=== PATIENT | male | born 1965 | race Caucasian/White ===

== ENCOUNTER → 2018-06-17 | Outpatient (CLI) | payer MEDICARE, MEDICAID ==
[2018-06-17 12:17] LABS: ABSOLUTE BASOPHILS # (AUTO) 0.1 10^3/uL (0.0-0.2); ABSOLUTE EOSINOPHILS # (AUTO) 0.4 10^3/uL (0.0-0.6); ABSOLUTE LYMPHOCYTES (AUTO) 0.8 10^3/uL (0.5-4.7); ABSOLUTE MONOCYTES (AUTO) 0.4 10^3/uL (0.1-1.4); ABSOLUTE NEUT (AUTO) 5.6 10^3/uL (1.7-8.2); BASOPHILS % (AUTO) 1.3 % (0-2); EOSINOPHILS % (AUTO) 5.3 % (0-6); HEMATOCRIT 29.9 % (37.9-51.0); HEMOGLOBIN 9.9 g/dL (13.5-17.0); MEAN CORPUSCULAR HEMOGLOBIN 28.7 pg (27.0-33.4); MEAN CORPUSCULAR HGB CONC 33.1 g/dL (32.0-36.0); MEAN CORPUSCULAR VOLUME 87 fl (80-97); MONOCYTES % (AUTO) 5.3 % (3-13); PLATELET COUNT 321 10^3/uL (150-450); RED BLOOD COUNT 3.44 10^6/uL (4.35-5.55); RED CELL DISTRIBUTION WIDTH 15.5 % (11.5-14.0); SEGMENTED NEUTROPHILS % (AUTO) 77.1 % (42-78); TOTAL CELLS COUNTED % (AUTO) 100 %; WHITE BLOOD COUNT 7.3 10^3/uL (4.0-10.5)
[2018-06-17 12:47] LABS: ANION GAP 18 (5-19); BLOOD UREA NITROGEN 34 mg/dL (7-20); CALCIUM 9.2 mg/dL (8.4-10.2); CARBON DIOXIDE 25 mmol/L (22-30); CHLORIDE 95 mmol/L (98-107); GLUCOSE 143 mg/dL (75-110); POTASSIUM 4.6 mmol/L (3.6-5.0); SODIUM 138.4 mmol/L (137-145)
--- NOTE | 2018-06-17 13:02 | RADIOLOGY REPORT (SQ) ---
EXAM DESCRIPTION: CHEST PA/LATERAL COMPLETED DATE/TIME: 06/17/2018 11:49 am REASON FOR STUDY: PRE-OP COMPARISON: None. EXAM PARAMETERS: NUMBER OF VIEWS: two views TECHNIQUE: Digital Frontal and Lateral radiographic views of the chest acquired. RADIATION DOSE: NA LIMITATIONS: none FINDINGS: LUNGS AND PLEURA: No opacities, masses or pneumothorax. No pleural effusion. MEDIASTINUM AND HILAR STRUCTURES: No masses or contour abnormalities. HEART AND VASCULAR STRUCTURES: Cardiomegaly. Mild prominence of the pulmonary vasculature(cephaliza tion). No evidence for failure. BONES: No acute findings. HARDWARE: None in the chest. OTHER: No other significant finding. IMPRESSION: 1. No acute pulmonary findings. 2. Cardiomegaly. No evidence for failure. TECHNICAL DOCUMENTATION: JOB ID: [id number] [employer]- All Rights Reserved Reading location - IP/workstation name: [email or web address]
--- NOTE | 2018-06-17 13:28 | EKG REPORT ---
SEVERITY:- ABNORMAL ECG - SINUS RHYTHM FIRST DEGREE AV BLOCK NONSPECIFIC INTRAVENTRICULAR CONDUCTION DELAY PROBABLE LEFT VENTRICULAR HYPERTROPHY : Confirmed by: Shine Gomes MD 17-Jun-2018 13:27:33
== END ==
LOC: OD 10:59
PROVIDERS: ATTEND Orthopaedic Surgery
DX: Z01.810 Encounter for preprocedural cardiovascular examination (principal); Z01.811 Encounter for preprocedural respiratory examination; Z01.812 Encounter for preprocedural laboratory examination; M19.019 Primary osteoarthritis, unspecified shoulder; Z95.818 Presence of other cardiac implants and grafts; Z01.89 Encounter for other specified special examinations; I12.0 Hypertensive chronic kidney disease with stage 5 chronic kidney disease or end stage renal disease; N18.6 End stage renal disease; I51.7 Cardiomegaly
CPT/HCPCS: 36415; 71046; 80048; 85025; 93005; 93010

== ENCOUNTER → 2018-12-29 | Outpatient (CLI) | payer MEDICARE, MEDICAID ==
[2018-12-29 16:07] LABS: ABSOLUTE BASOPHILS # (AUTO) 0.1 10^3/uL (0.0-0.2); ABSOLUTE EOSINOPHILS # (AUTO) 0.3 10^3/uL (0.0-0.6); ABSOLUTE LYMPHOCYTES (AUTO) 0.8 10^3/uL (0.5-4.7); ABSOLUTE MONOCYTES (AUTO) 0.4 10^3/uL (0.1-1.4); BASOPHILS % (AUTO) 1.1 % (0-2); EOSINOPHILS % (AUTO) 4.6 % (0-6); HEMATOCRIT 32.7 % (37.9-51.0); HEMOGLOBIN 11.1 g/dL (13.5-17.0); LYMPHOCYTES % (AUTO) 12.5 % (13-45); MEAN CORPUSCULAR HEMOGLOBIN 29.3 pg (27.0-33.4); MEAN CORPUSCULAR HGB CONC 33.9 g/dL (32.0-36.0); MEAN CORPUSCULAR VOLUME 87 fl (80-97); MONOCYTES % (AUTO) 6.5 % (3-13); PLATELET COUNT 261 10^3/uL (150-450); RED BLOOD COUNT 3.77 10^6/uL (4.35-5.55); RED CELL DISTRIBUTION WIDTH 15.5 % (11.5-14.0); SEGMENTED NEUTROPHILS % (AUTO) 75.3 % (42-78); TOTAL CELLS COUNTED % (AUTO) 100 %; WHITE BLOOD COUNT 6.7 10^3/uL (4.0-10.5)
--- NOTE | 2018-12-29 16:12 | RADIOLOGY REPORT (SQ) ---
EXAM DESCRIPTION: CHEST PA/LATERAL COMPLETED DATE/TIME: 12/29/2018 3:36 pm REASON FOR STUDY: PRE-OP COMPARISON: 06/17/2018. EXAM PARAMETERS: NUMBER OF VIEWS: two views TECHNIQUE: Digital Frontal and Lateral radiographic views of the chest acquired. RADIATION DOSE: NA LIMITATIONS: none FINDINGS: LUNGS AND PLEURA: No opacities, masses or pneumothorax. No pleural effusion. MEDIASTINUM AND HILAR STRUCTURES: No masses or contour abnormalities. HEART AND VASCULAR STRUCTURES: Heart normal size. No evidence for failure. BONES: No acute findings. HARDWARE: None in the chest. OTHER: No other significant finding. IMPRESSION: NO SIGNIFICANT RADIOGRAPHIC FINDING IN THE CHEST. TECHNICAL DOCUMENTATION: JOB ID: [id number] [employer]- All Rights Reserved Reading location - IP/workstation name: [email or web address]
[2018-12-29 16:36] LABS: ANION GAP 17 (5-19); BLOOD UREA NITROGEN 60 mg/dL (7-20); CALCIUM 8.2 mg/dL (8.4-10.2); CARBON DIOXIDE 31 mmol/L (22-30); CHLORIDE 91 mmol/L (98-107); GLUCOSE 103 mg/dL (75-110); POTASSIUM 4.3 mmol/L (3.6-5.0)
--- NOTE | 2018-12-30 17:58 | EKG REPORT ---
SEVERITY:- ABNORMAL ECG - SINUS RHYTHM FIRST DEGREE AV BLOCK CONSIDER ANTEROSEPTAL INFARCT BORDERLINE PROLONGED QT INTERVAL : Confirmed by: Royal Gonzalez 30-Dec-2018 17:57:45
== END ==
LOC: OD 15:05
PROVIDERS: ATTEND Orthopaedic Surgery
DX: M19.011 Primary osteoarthritis, right shoulder (principal); I10 Essential (primary) hypertension
CPT/HCPCS: 36415; 71046; 80048; 85025; 93005; 93010

== ENCOUNTER 2019-02-03 09:53 | Observation (INO) | payer MEDICARE, MEDICAID ==
[~2019-02-03 09:53] MED LIST: BUPIVACAINE INJ/PF LIPOSOME/PF 266 MG/20 ML SDV INJ PRN; CEFAZOLIN INJ 1 GM VIAL IV PRN; DEXAMETHASONE SOD PHOSPHATE INJ 4 MG/1 ML VIAL ONE; FENTANYL CITRATE INJ/PF 100 MCG/2 ML AMPUL ONE; FENTANYL CITRATE INJ/PF 250 MCG/5 ML AMPULE ONE; IBUPROFEN 800 MG in NORMAL SALINE 250 ML IV PRN; LIDOCAINE 0.5% INJ-PF (5 MG/ML) 50 ML SDV SUBCUT PRN; MIDAZOLAM 2 MG/2 ML INJ ONE; NORMAL SALINE 1000 ML (RENAL PATIENTS) IV PRN; ONDANSETRON HCL INJ/PF 4 MG/2 ML SDV ONE; OXYCODONE HCL SR 10 MG TABLET PO PRN; PROPOFOL INJ 200 MG/20 ML VIAL IV ONE; TRANEXAMIC ACID INJ/PF 1,000 MG/10 ML SDV ONE; VANCOMYCIN HCL 1,000 MG in DEXTROSE 5%-WATER 250 ML IV PRN
[2019-02-03] MEDS ORDERED: PANTOPRAZOLE SODIUM 20 MG TABLET.DR PO ONE (10:18)
[2019-02-03] MEDS ORDERED: OXYCODONE HCL SR 10 MG TABLET PO ONE (10:19)
[2019-02-03] MEDS ORDERED: CEFAZOLIN INJ 1 GM VIAL ONE (10:19)
[2019-02-03] MEDS: PANTOPRAZOLE SODIUM 20 MG TABLET.DR PO PRN ×2 (11:00→23:35)
[2019-02-03 11:24] LABS: ANION GAP 18 (5-19); BLOOD UREA NITROGEN 48 mg/dL (7-20); CALCIUM 7.8 mg/dL (8.4-10.2); CARBON DIOXIDE 32 mmol/L (22-30); CHLORIDE 94 mmol/L (98-107); GLUCOSE 104 mg/dL (75-110); POTASSIUM 3.6 mmol/L (3.6-5.0)
--- NOTE | 2019-02-03 11:36 | Operative Report ---
Operative Report DATE OF SURGERY: 02/03/19 PREOPERATIVE DIAGNOSIS: Poor peripheral veins for IV access POSTOPERATIVE DIAGNOSIS: Same OPERATION: Placement of left internal jugular vein triple-lumen catheter SURGEON: DILLAN ZENDEJAS ANESTHESIA: Local TISSUE REMOVED OR ALTERED: None COMPLICATIONS: None ESTIMATED BLOOD LOSS: 10 cc QUANTITATIVE BLOOD LOSS: 10 INTRAOPERATIVE FINDINGS: Relatively small left internal jugular vein noted on ultrasound PROCEDURE: After informed consent obtained and after timeout patient was placed in the stretcher on Trendelenburg position and the left neck prepped and draped in the usual sterile fashion. With the use of the ultrasound the left internal jugular vein was then identified and the skin over it was then anesthetized with lidocaine. The left internal jugular vein was then punctured and lidocaine came out of the needle that slightly dark and nonpulsatile. Next guidewire passed through the needle towards the area of the superior vena cava and the needle removed and the puncture site dilated. A triple-lumen catheter was then inserted through the guidewire to a distance of about 19cm. The guidewire was removed and all the 3 ports aspirated blood easily and instilled saline easily. Guide and the catheter anchored to the skin with 3-0 silk and a Biopatch placed at the insertion site and a transparent sterile dressing placed over the Biopatch and catheter. A chest x-ray was immediately obtained which showed ca theter in good position right at the superior vena cava area and no evidence of pneumothorax. Patient tolerated procedure well.
[2019-02-03] MEDS ORDERED: LIDOCAINE 0.5% INJ-PF (5 MG/ML) 50 ML SDV ONE (11:47)
--- NOTE | 2019-02-03 12:05 | RADIOLOGY REPORT (SQ) ---
EXAM DESCRIPTION: CHEST SINGLE VIEW COMPLETED DATE/TIME: 02/03/2019 11:45 am REASON FOR STUDY: PREOP COMPARISON: 12/29/2018 EXAM PARAMETERS: NUMBER OF VIEWS: One view. TECHNIQUE: Single frontal radiographic view of the chest acquired. RADIATION DOSE: NA LIMITATIONS: None. FINDINGS: LUNGS AND PLEURA: No opacities, masses or pneumothorax. No pleural effusion. MEDIASTINUM AND HILAR STRUCTURES: No masses. Contour normal. HEART AND VASCULAR STRUCTURES: Heart normal in size. Aortic atherosclerosis BONES: No acute findings. Degenerative changes at the right shoulder. HARDWARE: Left IJ central venous catheter with tip over SVC. OTHER: No other significant finding. IMPRESSION: No evidence of acute intrathoracic process. Left IJ central venous catheter tip over SVC. No pneumothorax. TECHNICAL DOCUMENTATION: JOB ID: [id number] [employer]- All Rights Reserved Reading location - IP/workstation name: [email or web address]
[2019-02-03] MEDS ORDERED: EPHEDRINE SULFATE INJ 50 MG/1 ML AMPULE ONE (12:46)
[2019-02-03] MEDS ORDERED: SUCCINYLCHOLINE CHLORIDE INJ 200 MG/10 ML VIAL ONE (13:10)
[2019-02-03] MEDS ORDERED: DIPHENHYDRAMINE HCL 50 MG/ML VIAL IV PRN (14:00)
[2019-02-03] MEDS ORDERED: FENTANYL CITRATE INJ/PF 100 MCG/2 ML AMPUL IV PRN ×3 (14:00)
[2019-02-03] MEDS ORDERED: MORPHINE SULFATE 10 MG/ML INJ IV PRN (14:00)
[2019-02-03] MEDS ORDERED: MEPERIDINE HCL/PF INJ 25 MG/1 ML DISP.SYRIN IV PRN (14:00)
[2019-02-03] MEDS ORDERED: ONDANSETRON HCL INJ/PF 4 MG/2 ML SDV IV PRN (14:00)
[2019-02-03] MEDS ORDERED: PROMETHAZINE HCL INJ 25 MG/1 ML VIAL IV PRN ×2 (14:00)
[2019-02-03] MEDS ORDERED: BUPIVACAINE HCL 0.25 % INJ/PF (2.5 MG/1 ML) 30 ML VIAL ONE (16:12)
[2019-02-03] MEDS ORDERED: BUPIVACAINE HCL 0.5 % INJ/PF 30 ML SDV ONE (16:12)
--- NOTE | 2019-02-03 16:42 | Operative Report ---
Operative Report DATE OF SURGERY: 02/03/19 PREOPERATIVE DIAGNOSIS: Right glenohumeral DJD POSTOPERATIVE DIAGNOSIS: same OPERATION: Right total shoulder arthroplasty SURGEON: ARTEMIO PALUMBO ANESTHESIA: GA COMPLICATIONS: None ESTIMATED BLOOD LOSS: 125cc PROCEDURE: Indication for above procedure: 28-year-old male with long-standing history of right glenohumeral DJD. Patient has attempted conservative measures including multiple injections without long- term resolution of his symptoms. Patient's symptoms became significantly debilitating decreasing his ability to perform ADLs. At that point decision was made to proceed with operative intervention. Risk and benefits were explained patient verbalized understanding consented for surgical procedure. Implants: Arthrex universe vaulted glenoid medium, Arthrex universe humeral stem 6 mm 50/21 humeral head Procedure In Detail: Patient was seen and evaluated in the preoperative holding area. The RIGHT upper extremity was initialized and marked. Patient received 2g of Ancef and Vancomycin IV for bacterial prophylaxis. Patient was taken back to the operative room where transferred to the operative table and placed under general anesthesia. Once they were adequately anesthetized patient placed in the beachchair position. Cervical spine was placed in neutral position all bony pr ominences were padded including nonoperative upper extremity and bilateral lower extremity. A surgical team debriefing was performed ensuring all instrumentation was available, the surgical procedure was discussed with possible concerns reviewed. The upper extremity was prepped with ChloraPrep draped in a sterile fashion. A timeout was done identifying correct patient, procedure and extremity everyone in attendance agree with this and verbalized no concerns. Deltopectoral interval was utilized. Blunt dissection was performed. Cephalic vein was identified and retracted in a lateral direction. Any small tributaries were isolated coagulated and controlled. Clavicle pectoralis fascia was then incised. Bleeders along the humeral neck was identified and coagulated. Biceps tendon was identified and rotator interval incised. Subscapularis peel was then performed exposing the glenohumeral joint. Rotator cuff was explored to ensure no evidence of disruption and remained intact. Extra medullary guide was then utilized and 35 degree neck angle cut and humeral head removed. Humeral head measured approximately 50 mm on the back table. The capsule was then subscapularis was then tagged and capsule isolated and excised to define the glenoid. Once glenoid was at least exposed the VIP guide was placed. And pin was placed along the central portion of the glenoid. Any peripheral osteophytes were removed. After peripheral osteophytes were removed the glenoid sizer was placed and decision was made to proceed with medium glenoid as opposed to large glenoid. The glenoid was reamed down to cancellus bone. The voltage glenoid was prepared with appropriate drill holes. An central drill hole drilled. Medium glenoid on the back table was then prepared with bone graft along the central peg and cement prepared. The cement was pressurized within the holes along the glenoid and glenoid impacted into position. Under direct visualization placement of the glenoid was confirmed without evidence of overhang and proper advancement. Wound was copiously irrigated with normal saline and decision then went to preparation of the humeral stem. Intramedullary guide was placed within the humerus reaming with hand up to a 6 mm reamer. Humerus was then broached with a 30 degree retroversion angle. Began broaching a 5 mm up to a 6 mm stem at which point, adequate fixation. Humerus was trialed and decision was made that 50/21 humeral head was adequate stability with the 60-14-27-year-old with posterior translation and 50% bounce back, 40 degrees of external rotation and 6 degrees of internal rotation at 90 degrees. No evidence of instability. 2 drill holes were placed within the biceps groove. 8 sutures were placed into the size 6 Arthrex humeral stem to allow for later subscapularis repair humerus was then impacted into position. Trial was once again performed with a size 50/21 head instability was confirmed. The head was then implanted. Betadine was placed in the wound for 2 minutes. Wound was copiously irrigated with pulse lavage. Lesser tuberosity was decorticated and subscapularis was repaired utilizing the Arthrex double row suture system which provided optimal fixation of the subscap obtaining approximately 40 degrees of external rotation. To provide further stability 3 sutures were placed within the rotator interval. Deltopectoral interval was closed with interrupted 0 Vicryl suture. Subcutaneous tissues were closed with interrupted 3-0 Monocryl suture. Skin was closed with brie. 30 cc of 0.5% bupivacaine without epinephrine was injected for postoperative pain control. Wound was dressed with Acticoat and OpSite. Sponge counts, instrument counts, needle counts were correct. Patient was then awoken from anesthesia. Transferred from the operating room table to the operating room stretcher. There was no intraoperative complications patient tolerated procedure well stable to PACU. Postop plan: Patient will be admitted overnight and will continue IV antibiotics. Patient will follow in the office in 2 weeks for wound check. We will begin aspirin for DVT prophylaxis.
--- NOTE | 2019-02-03 17:24 | RADIOLOGY REPORT (SQ) ---
EXAM DESCRIPTION: SHOULDER RIGHT 2 OR MORE VIEWS COMPLETED DATE/TIME: 02/03/2019 5:05 pm REASON FOR STUDY: Post op TSA M19.019 PRIMARY OSTEOARTHRITIS, UNSPECIFIED SHOULDER COMPARISON: None. NUMBER OF VIEWS: Two views TECHNIQUE: Internal rotation, external rotation images acquired of the right shoulder. LIMITATIONS: None. FINDINGS: Two-view postop right shoulder. Right shoulder arthrodesis in good alignment. Small amount of appropriate soft tissue gas. Overlyin g skin brie. No fracture. Visualized right lung and ribs are unremarkable. IMPRESSION: Appropriate postoperative right shoulder two views TECHNICAL DOCUMENTATION: JOB ID: [id number] [employer]- All Rights Reserved Reading location - IP/workstation name: [email or web address]
[2019-02-03] MEDS: HYDROCODONE/ACETAMINOPHEN 5-325 MG TABLET PO PRN (20:20)
[2019-02-03] MEDS: OXYCODONE HCL IR 5 MG TABLET PO PRN (22:44)
[2019-02-03] MEDS: DIPHENHYDRAMINE HCL 25 MG CAPSULE PO PRN (23:25)
[2019-02-03] MEDS ORDERED: LOSARTAN POTASSIUM 25 MG TABLET PO ONE (23:30)
[2019-02-03] MEDS ORDERED: NIFEDIPINE 30 MG TAB.ER.24 PO ONE (23:30)
[2019-02-03] MEDS ORDERED: ARIPIPRAZOLE 2 MG TABLET PO ONE (23:30)
[2019-02-03] MEDS ORDERED: DULOXETINE HCL 30 MG CAPSULE.DR PO ONE (23:30)
[2019-02-03] MEDS ORDERED: TRAZODONE HCL 50 MG TABLET PO ONE (23:30)
[2019-02-03] MEDS ORDERED: ASPIRIN 81 MG TABLET, CHEWABLE PO ONE (23:30)
[2019-02-03] MEDS ORDERED: METOPROLOL SUCCINATE 50 MG TAB.SR.24H PO ONE (23:30)
[2019-02-03] MEDS ORDERED: ISOSORBIDE MONONITRATE 60 MG TAB.ER.24H PO ONE (23:45)
[2019-02-03] MEDS ORDERED: LIPASE/PROTEASE/AMYLASE 1 CAP CAPSULE.DR PO ONE (23:45)
[2019-02-04] MEDS: HYDROMORPHONE HCL INJ/PF 2 MG/ML AMPULE IV PRN ×3 (02:09→08:23)
[2019-02-04] MEDS ORDERED: VANCOMYCIN HCL 1,000 MG in DEXTROSE 5%-WATER 250 ML IV ONE (05:09)
[2019-02-04] MEDS ORDERED: PANTOPRAZOLE SODIUM 40 MG TABLET.DR PO SCH (06:00)
[2019-02-04] MEDS ORDERED: HEPARIN SOD (PORCINE) 5,000 UNIT/ML 1 ML VIAL SUBCUT SCH (06:00)
--- NOTE | 2019-02-04 06:27 | PDOC PROGRESS REPORT ---
Subjective Progress Note for:: 02/04/19 Subjective:: Patient lying in bed calmly. No issues overnight. States pain is controlled. Denies fever chills or sweats. Denies chest pain or shortness of breath. Reason For Visit: RIGHT TSA Physical Exam Vital Signs: Temp Pulse Resp BP Pulse Ox 98.4 F 77 15 137/61 H 97 02/03/19 23:35 02/03/19 23:35 02/03/19 23:35 02/03/19 23:35 02/03/19 23:35 Intake & Output 02/02/19 02/03/19 02/04/19 06:59 06:59 06:59 Intake Total 1922 Output Total 125 Balance 1797 Weight 73.1 kg Extremities exam: PRESENT: other - Right upper extremity: Dressing clean/dry/intact intact flexion extension of the elbow wrist and hand. No sensory deficits. Radial pulse 2+. Results Laboratory Results: 02/03/19 10:43 02/03/19 10:43 Sodium 144.0 Potassium 3.6 Chloride 94 L Carbon Dioxide 32 H Anion Gap 18 BUN 48 H Creatinine 16.60 H Est GFR ( Amer) 4 L Glucose 104 Calcium 7.8 L Impressions: Chest X-Ray 02/03/19 00:00 IMPRESSION: No evidence of acute intrathoracic process. Left IJ central venous catheter tip over SVC. No pneumothorax. Shoulder X-Ray 02/03/19 00:00 IMPRESSION: Appropriate postoperative right shoulder two views Assessment & Plan - Diagnosis (1) Degenerative joint disease, shoulder, right Qualifiers: Osteoarthritis type: primary Qualified Code(s): M19.011 - Primary osteoarthritis, right shoulder Is this a current diagnosis for this admission?: Yes Plan: Postop day #1 status post right total shoulder arthroplasty 1. Oxycodone for pain control 2. We will change to aspirin for DVT prophylaxis the patient will continue postoperatively at home. 3. Begin gentle range of motion elbow wrist and hand no shoulder range of motion. 4. Discharge home today. - Time Time Spent with patient: Less than 15 minutes
--- NOTE | 2019-02-04 06:30 | PDOC DISCHARGE SUMMARY ---
Impression - Admit/DC Date/PCP Discharge Date: 02/04/19 - Discharge Diagnosis (1) Degenerative joint disease, shoulder, right Is this a current diagnosis for this admission?: Yes - Assessment Summary: 53-year-old male with long-standing history of right shoulder DJD. Attempted conservative measures including injections without resolution of patient's symptoms. At that point decision was made to proceed with operative int ervention. On 02/04/2019 patient underwent total shoulder arthroplasty. Postoperatively patient had been doing well. Pain controlled with oxycodone. Patient had no issues overnight on postop day 1 and thus on 02/04/2019 orthopedically stable for discharge to home. - Additional Information Discharge Diet: As Tolerated Discharge Activity: Activity As Tolerated Home Medications: Aspirin [Adult Aspirin Regimen] 81 mg PO DAILY 06/25/18 Duloxetine HCl [Cymbalta] 60 mg PO DAILY 06/25/18 Hydrocodone/Acetaminophen [[place]on 5-325 mg Tablet] 5 - 325 mg PO Q4HP PRN 06/25/18 Metoprolol Succinate [Toprol XL 100 mg Tablet] 100 mg PO DAILY 06/25/18 Nitroglycerin [Nitrostat 0.4 mg (1/150 Gr) Tabs 25/Bottle] 0.4 mg PO ASDIR PRN 06/25/18 Aripiprazole 2 mg PO DAILY 01/19/19 Calcium Acetate [Phoslo 667 mg Capsule] 667 mg PO DAILY 01/19/19 Isosorbide Mononitrate [Imdur 60 mg Tablet.er] 60 mg PO DAILY 01/19/19 Losartan Potassium [Cozaar] 25 mg PO DAILY 01/19/19 Nifedipine [Nifedipine ER] 30 mg PO DAILY 01/19/19 Pantoprazole Sodium [Protonix] 40 mg PO DAILY 01/19/19 Trazodone HCl 100 mg PO QHS 01/19/19 History of Present Illiness History of Present Illness: ESTEHR MACHUCA is a 53 year old male Hospital Course Hospital Course: 53-year-old male with long-standing history of right shoulder DJD. Attempted conservative measures including injections without resolution of patient's symptoms. At that point decision was made to proceed with operative intervention. On 02/04/2019 patient underwent total shoulder arthroplasty. Postoperatively patient had been doing well. Pain controlled with oxycodone. Patient had no issues overnight on postop day 1 and thus on 02/04/2019 orthopedically stable for discharge to home. Physical Exam Vital Signs: Temp Pulse Resp BP Pulse Ox 98.4 F 77 15 137/61 H 97 02/03/19 23:35 02/03/19 23:35 02/03/19 23:35 02/03/19 23:35 02/03/19 23:35 Intake & Output 02/02/19 02/03/19 02/04/19 06:59 06:59 06:59 Intake Total 1922 Output Total 125 Balance 1797 Weight 73.1 kg General appearance: PRESENT: no acute distress, well-developed, well-nourished Head exam: PRESENT: atraumatic, normocephalic Eye exam: PRESENT: conjunctiva pink, EOMI, PERRLA. ABSENT: scleral icterus Ear exam: PRESENT: normal external ear exam Mouth exam: PRESENT: moist, tongue midline Neck exam: ABSENT: carotid bruit, JVD, lymphadenopathy, thyromegaly Respiratory exam: PRESENT: clear to auscultation tomasz, unlabored. ABSENT: rales, rhonchi, wheezes Cardiovascular exam: PRESENT: RRR. ABSENT: diastolic murmur, rubs, systolic murmur Pulses: PRESENT: normal dorsalis pedis pul Vascular exam: PRESENT: normal capillary refill GI/Abdominal exam: PRESENT: normal bowel sounds, soft. ABSENT: distended, guarding, mass, organolmegaly, rebound, tenderness Rectal exam: PRESENT: deferred Extremities exam: PRESENT: full ROM. ABSENT: calf tenderness, clubbing, pedal edema Musculoskeletal exam: PRESENT: other - Right shoulder: Dressing clean/dry/intact no erythema or drainage. Intact flexion/extension of the elbow wrist and hand. No sensory deficits. Neurological exam: PRESENT: alert, awake, oriented to person, oriented to place, oriented to time, oriented to situation, CN II-XII grossly intact. ABSENT: motor sensory deficit Psychiatric exam: PRESENT: appropriate affect, normal mood. ABSENT: homicidal ideation, suicidal ideation Skin exam: PRESENT: dry, intact, warm. ABSENT: cyanosis, rash Results Laboratory Results: Sodium 144.0 mmol/L (137-145) 02/03/19 10:43 Potassium 3.6 mmol/L (3.6-5.0) 02/03/19 10:43 Chloride 94 mmol/L (98-107) L 02/03/19 10:43 Carbon Dioxide 32 mmol/L (22-30) H 02/03/19 10:43 Anion Gap 18 (5-19) 02/03/19 10:43 BUN 48 mg/dL (7-20) H 02/03/19 10:43 Creatinine 16.60 mg/dL (0.52-1.25) H 02/03/19 10:43 Est GFR ( Amer) 4 (>60) L 02/03/19 10:43 Est GFR (MDRD) Non-Af 3 (>60) L 02/03/19 10:43 Glucose 104 mg/dL (75-110) 02/03/19 10:43 Calcium 7.8 mg/dL (8.4-10.2) L 02/03/19 10:43 Impressions: Chest X-Ray 02/03/19 00:00 IMPRESSION: No evidence of acute intrathoracic process. Left IJ central venous catheter tip over SVC. No pneumothorax. Shoulder X-Ray 02/03/19 00:00 IMPRESSION: Appropriate postoperative right shoulder two views Plan Plan of Treatment: Postop day #1 status post right total shoulder arthroplasty. 1. Elbow wrist and hand range of motion. 2. Aspirin for DVT prophylaxis 3. Oxycodone for pain control. 4. Patient has done well postoperatively. On 02/04/2019 orthopedically stable for discharge to home. Patient will follow in the office in 10-14 days for wound check. Patient to call the office with questions or concerns including increasing redness, swelling, pain or temperature greater than 101.5. Patient was reviewed the above instructions understood above instructions. Stroke Is this a Stroke Patient?: No Acute Heart Failure - Is this a Heart Failure Patient?: No
[2019-02-04 07:21] LABS: HEMATOCRIT 20.5 % (37.9-51.0); MEAN CORPUSCULAR HGB CONC 33.6 g/dL (32.0-36.0); MEAN CORPUSCULAR VOLUME 89 fl (80-97); PLATELET COUNT 249 10^3/uL (150-450); RED BLOOD COUNT 2.29 10^6/uL (4.35-5.55); RED CELL DISTRIBUTION WIDTH 15.3 % (11.5-14.0); WHITE BLOOD COUNT 7.8 10^3/uL (4.0-10.5)
[2019-02-04 07:32] LABS: HEMOGLOBIN 6.9 g/dL (13.5-17.0)
[2019-02-04 07:43] LABS: ANION GAP 14 (5-19); BLOOD UREA NITROGEN 53 mg/dL (7-20); CARBON DIOXIDE 31 mmol/L (22-30); CHLORIDE 92 mmol/L (98-107); GLUCOSE 115 mg/dL (75-110); POTASSIUM 3.9 mmol/L (3.6-5.0)
[2019-02-04] MEDS: CALCIUM ACETATE 667 MG CAPSULE PO SCH ×3 (08:23→17:27)
[2019-02-04] MEDS ORDERED: ENOXAPARIN SODIUM INJ 30 MG/0.3 ML DISP.SYRIN SUBCUT SCH (10:00)
[2019-02-04] MEDS ORDERED: ONDANSETRON HCL INJ/PF 4 MG/2 ML SDV IV PRN (10:03)
[2019-02-04] MEDS ORDERED: NORMAL SALINE 250 ML IV PRN ×2 (10:26)
[2019-02-04] MEDS: METOPROLOL SUCCINATE 50 MG TAB.SR.24H PO SCH ×2 (10:28→17:27)
[2019-02-04] MEDS: NIFEDIPINE 30 MG TAB.ER.24 PO SCH ×2 (10:28→17:29)
[2019-02-04] MEDS: HYDROCODONE/ACETAMINOPHEN 5-325 MG TABLET PO PRN ×2 (10:33→17:27)
[2019-02-04] MEDS: OXYCODONE HCL IR 5 MG TABLET PO PRN ×2 (10:33→15:01)
[2019-02-04] MEDS: DIPHENHYDRAMINE HCL 25 MG CAPSULE PO PRN (13:23)
[2019-02-04 14:45] LABS: ALBUMIN 2.9 g/dL (3.5-5.0); ALKALINE PHOSPHATASE 38 U/L (38-126); ASPARTATE AMINO TRANSFERASE 32 U/L (17-59); BILIRUBIN,DIRECT 0.4 mg/dL (0.0-0.4); BILIRUBIN,TOTAL 0.4 mg/dL (0.2-1.3); TOTAL PROTEIN 5.4 g/dL (6.3-8.2)
--- NOTE | 2019-02-04 17:29 | PDOC CONSULTATION ---
Consultation Consult Date: 02/04/19 Attending physician:: ARTEMIO PALUMBO Provider Consulted: CHILO MARTINEZ Consult reason:: Anemia. Need for transfusion. History of Present Illness Admission Date/PCP: 02/03/19 17:09 Patient complains of: Elective shoulder arthroplasty. Consultation is for evaluation of acute blood loss anemia. History of Present Illness: ESTHER MACHUCA is a 53 year old male with long-standing history of right shoulder DJD who was admitted to the hospital for an elective total shoulder arthroplasty. Postoperatively, patient was noted on blood work to have a hemoglobin of 6.9. Hospitalist service was consulted to see if blood transfusion was needed. I discussed with patient's dialysis nurse who informed me that hemoglobin is usually between 10 and 12 and the most recent few days ago was around 10.7. Also reviewed patient's calcium level which has been around 8.0 [corrected calcium]. Patient currently denies any shortness of breath, tingling, chest pain dizziness or lightheadedness. Patient denies taking any c alcium supplements but does admit to having a parathyroidectomy done in the past. Past Medical History Cardiac Medical History: Reports: Coronary Artery Disease, Hypertension Denies: Myocardial Infarction, Peripheral Vascular Disease, Heart Murmur Pulmonary Medical History: Denies: Asthma, Bronchitis, Chronic Obstructive Pulmonary Disease (COPD), Sleep Apnea Neurological Medical History: Denies: Seizures Endocrine Medical History: Reports: Other - Hypocalcemia Denies: Hyperthyroidism, Hypothyroidism Renal/ Medical History: Reports: End Stage Renal Disease - On peritoneal dialysis GI Medical History: Denies: Crohn's Disease, Gastroesophageal Reflux Disease, Hiatal Hernia Musculoskeltal Medical History: Reports: Arthritis Hematology: Reports: Anemia Past Surgical History Past Surgical History: Reports: Cholecystectomy, Other - Parathyroidectomy, AV graft placement in left arm, peritoneal dialysis cath Denies: Appendectomy, Colostomy, Coronary Artery Bypass Graft - cardiac cath 06/27/18 with stent, Gastric Bypass Surgery, Herniorrhaphy, Pacemaker, Tonsillectomy Social History Information Source: Patient Smoking Status: Never Smoker Frequency of Alcohol Use: None Drugs: Marijuana Hx Prescription Drug Abuse: No Family History Family History: DM, Hypertension Parental Family History Reviewed: Yes Children Family History Reviewed: Yes Sibling(s) Family History Reviewed.: Yes Medication/Allergy Home Medications: Aspirin [Adult Aspirin Regimen] 81 mg PO DAILY 06/25/18 Duloxetine HCl [Cymbalta] 60 mg PO DAILY 06/25/18 Hydrocodone/Acetaminophen [[place] 5-325 mg Tablet] 5 - 325 mg PO Q4HP PRN 06/25/18 Metoprolol Succinate [Toprol XL 100 mg Tablet] 100 mg PO DAILY 06/25/18 Nitroglycerin [Nitrostat 0.4 mg (1/150 Gr) Tabs 25/Bottle] 0.4 mg PO ASDIR PRN 06/25/18 Aripiprazole 2 mg PO DAILY 01/19/19 Calcium Acetate [Phoslo 667 mg Capsule] 667 mg PO DAILY 01/19/19 Isosorbide Mononitrate [Imdur 60 mg Tablet.er] 60 mg PO DAILY 01/19/19 Losartan Potassium [Cozaar] 25 mg PO DAILY 01/19/19 Nifedipine [Nifedipine ER] 30 mg PO DAILY 01/19/19 Pantoprazole Sodium [Protonix] 40 mg PO DAILY 01/19/19 Trazodone HCl 100 mg PO QHS 01/19/19 Allergies/Adverse Reactions: acetaminophen [From Percocet] Allergy (Verified 01/14/19 12:36) Generalized Itching oxycodone [From Percocet] Allergy (Verified 01/14/19 12:36) Generalized Itching Review of Systems Constitutional: ABSENT: chills, fever(s) Eyes: ABSENT: visual disturbances Cardiovascular: ABSENT: chest pain, edema Respiratory: ABSENT: dyspnea, hemoptysis Gastrointestinal: ABSENT: hematemesis, hematochezia Genitourinary: PRESENT: other - Does not make urine. ABSENT: hematuria Integumentary: ABSENT: diaphoresis Neurological: ABSENT: confusion, dizziness Psychiatric: ABSENT: anxiety Endocrine: ABSENT: cold intolerance Hematologic/Lymphatic: ABSENT: easy bleeding Physical Exam Vital Signs: Temp Pulse Resp BP Pulse Ox 97.8 F 78 14 119/56 L 100 02/04/19 15:25 02/04/19 15:25 02/04/19 15:25 02/04/19 15:25 02/04/19 15:25 Intake & Output 02/03/19 02/04/19 02/05/19 06:59 06:59 06:59 Intake Total 1922 772 Output Total 125 Balance 1797 772 Weight 73.1 kg General appearance: PRESENT: no acute distress, cooperative Eye exam: PRESENT: conjunctiva pale Mouth exam: PRESENT: neck supple Neck exam: ABSENT: JVD Respiratory exam: PRESENT: clear to auscultation tomasz, symmetrical, unlabored. ABSENT: tachypnea, wheezes Cardiovascular exam: PRESENT: RRR, +S1, +S2, systolic murmur. ABSENT: tachycardia GI/Abdominal exam: PRESENT: normal bowel sounds, soft, other - Peritoneal dialysis catheter present. ABSENT: rebound, rigid, tenderness Extremities exam: PRESENT: other - AV grafting left arm Neurological exam: PRESENT: alert, awake, oriented to person, oriented to place, oriented to time, oriented to situation Results Laboratory Results: 02/04/19 07:11 02/04/19 07:11 02/04/19 02/04/19 02/04/19 07:11 07:11 07:11 WBC 7.8 RBC 2.29 L Hgb 6.9 L Hct 20.5 L MCV 89 MCH 30.0 MCHC 33.6 RDW 15.3 H Plt Count 249 Sodium 137.1 Potassium 3.9 Chloride 92 L Carbon Dioxide 31 H Anion Gap 14 BUN 53 H Creatinine 17.99 H Est GFR ( Amer) 3 L Glucose 115 H Calcium 7.0 L* Total Bilirubin 0.4 AST 32 Alkaline Phosphatase 38 Total Protein 5.4 L Albumin 2.9 L Blood Type Antibody Screen 02/04/19 11:00 WBC RBC Hgb Hct MCV MCH MCHC RDW Plt Count Sodium Potassium Chloride Carbon Dioxide Anion Gap BUN Creatinine Est GFR ( Amer) Glucose Calcium Total Bilirubin AST Alkaline Phosphatase Total Protein Albumin Blood Type O POSITIVE Antibody Screen NEGATIVE Impressions: Chest X-Ray 02/03/19 00:00 IMPRESSION: No evidence of acute intrathoracic process. Left IJ central venous catheter tip over SVC. No pneumothorax. Shoulder X-Ray 02/03/19 00:00 IMPRESSION: Appropriate postoperative right shoulder two views Assessment and Plan - Diagnosis (1) Anemia associated with acute blood loss Is this a current diagnosis for this admission?: Yes Plan: Patient's hemoglobin level earlier this month was 10.7. I spoke to patient's nurse at the dialysis center to confirm this. I placed an order to transfuse patient with 1 unit of PRBC after type and screen given hemoglobin of 6.9 which is likely secondary to blood loss from the operative procedure. Patient has been completed Follow-up repeat CBC and if hemoglobin is over 7, then his anemia should not hol d up his discharge from my perspective barring other issues. (2) Hypocalcemia Is this a current diagnosis for this admission?: Yes Plan: Patient has chronic history of hypocalcemia as I have confirmed his previous outpatient labs. Corrected calcium is 7.9. This is likely secondary to hypovitaminosis D from his ESRD Anticipate his calcium will drop further giving blood transfusion. Hence, I will give a dose of calcium gluconate 2 g now and I will send a prescription to patient's pharmacy for calcium carbonate 1250 mg twice daily and calcitriol 0.25 mg daily. Patient should follow-up with his primary care physician for further management of this condition. (3) ESRD (end stage renal disease) on dialysis Is this a current diagnosis for this admission?: Yes Plan: Patient is planned for peritoneal dialysis at home tonight. (4) Degenerative joint disease, shoulder, right Qualifiers: Osteoarthritis type: primary Qualified Code(s): M19.011 - Primary osteoarthritis, right shoulder Is this a current diagnosis for this admission?: Yes Plan: Patient is postop day 1 from surgical procedure - Plan Summary Summary: If hemoglobin posttransfusion is over 7, I will sign off. Call with questions. - Time Time Spent with patient: 35 or more minutes
[2019-02-04 18:00] LABS: ABSOLUTE EOSINOPHILS # (AUTO) 0.1 10^3/uL (0.0-0.6); ABSOLUTE LYMPHOCYTES (AUTO) 0.8 10^3/uL (0.5-4.7); ABSOLUTE MONOCYTES (AUTO) 0.8 10^3/uL (0.1-1.4); ABSOLUTE NEUT (AUTO) 5.1 10^3/uL (1.7-8.2); BASOPHILS % (AUTO) 0.7 % (0-2); MEAN CORPUSCULAR HEMOGLOBIN 30.2 pg (27.0-33.4); TOTAL CELLS COUNTED % (AUTO) 100 %
[2019-02-04] MEDS ORDERED: CALCIUM GLUCONATE 1000 MG/10 ML INJ IV ONE (18:00)
[2019-02-04 18:15] LABS: ABSOLUTE BASOPHILS # (AUTO) 0.1 10^3/uL (0.0-0.2); EOSINOPHILS % (AUTO) 1.2 % (0-6); HEMATOCRIT 21.5 % (37.9-51.0); LYMPHOCYTES % (AUTO) 11.4 % (13-45); MEAN CORPUSCULAR HGB CONC 34.2 g/dL (32.0-36.0); MEAN CORPUSCULAR VOLUME 88 fl (80-97); MONOCYTES % (AUTO) 11.7 % (3-13); PLATELET COUNT 193 10^3/uL (150-450); RED BLOOD COUNT 2.44 10^6/uL (4.35-5.55); RED CELL DISTRIBUTION WIDTH 15.1 % (11.5-14.0); WHITE BLOOD COUNT 6.8 10^3/uL (4.0-10.5)
[2019-02-04 18:30] LABS: HEMOGLOBIN 7.4 g/dL (13.5-17.0)
[2019-02-04 18:40] VITALS: BP 119/56
[2019-02-04] MEDS ORDERED: ASPIRIN 81 MG TABLET, CHEWABLE PO SCH (22:00)
[2019-02-04] MEDS ORDERED: LIPASE/PROTEASE/AMYLASE 1 CAP CAPSULE.DR PO SCH (22:00)
[2019-02-04] MEDS ORDERED: ARIPIPRAZOLE 2 MG TABLET PO SCH (22:00)
[2019-02-04] MEDS ORDERED: ISOSORBIDE MONONITRATE 60 MG TAB.ER.24H PO SCH (22:00)
[2019-02-04] MEDS ORDERED: TRAZODONE HCL 50 MG TABLET PO SCH (22:00)
[2019-02-04] MEDS ORDERED: LOSARTAN POTASSIUM 25 MG TABLET PO SCH (22:00)
[2019-02-04] MEDS ORDERED: DULOXETINE HCL 30 MG CAPSULE.DR PO SCH (22:00)
== END 2019-02-04 20:11 | disposition home or self-care (01) ==
LOC: OROUT 09:53 → 5 17:09
PROVIDERS: ADMIT Orthopaedic Surgery; ATTEND Orthopaedic Surgery
PROC: 02HV33Z Insertion of Infusion Device into Superior Vena Cava, Percutaneous Approach (ICD-10-PCS; 2019-02-03)
PROC: 0RRJ0JZ Replacement of Right Shoulder Joint with Synthetic Substitute, Open Approach (ICD-10-PCS; principal; 2019-02-03 12:00)
PROC: 30233N1 Transfusion of Nonautologous Red Blood Cells into Peripheral Vein, Percutaneous Approach (ICD-10-PCS; 2019-02-04)
DX: M19.011 Primary osteoarthritis, right shoulder (principal); I12.0 Hypertensive chronic kidney disease with stage 5 chronic kidney disease or end stage renal disease; N18.6 End stage renal disease; D62 Acute posthemorrhagic anemia; E83.51 Hypocalcemia; Z99.2 Dependence on renal dialysis; I25.10 Atherosclerotic heart disease of native coronary artery without angina pectoris; Z79.82 Long term (current) use of aspirin; Z79.899 Other long term (current) drug therapy; Z98.890 Other specified postprocedural states; Z95.5 Presence of coronary angioplasty implant and graft; Z87.891 Personal history of nicotine dependence
CPT/HCPCS: 23472; 36558; 86900; 86901; 36415 ×2; 36430; 86850; 85027; 80076; 80048 ×2; 86920; 71045; 73030; 94799; 01630; G0378 ×2; G0379; C1751; P9016; J2250; A9270 ×21; J3490 ×3; J0610; J0690; J1100; J3010; J1170; J0330; J2405 ×2; J7060 ×2; J7050; J2704; J3370 ×2; J1741